=== PATIENT | female | born 1980 | race Two or more races ===

== ENCOUNTER 2018-02-11 14:22 | Emergency (ER) | payer OTHER ==
[2018-02-11] MEDS ORDERED: Sodium Chloride 0.9% 1,000 ML IV ONE (14:27)
[2018-02-11] MEDS ORDERED: Albuterol/Ipratropium 3.0-0.5 MG/3 ML Neb Soln NEB ONE (14:27)
[2018-02-11] MEDS ORDERED: methylPREDNISolone Sodium Succinate 125 MG/2 ML SDV IVPUSH ONE (14:27)
--- NOTE | 2018-02-11 14:30 | EDM.PDOC ---
ED HPI GENERAL MEDICAL PROBLEM - General Chief Complaint: Respiratory Problem Stated Complaint: SOB Time Seen by Provider: 02/11/18 14:23 - History of Present Illness INITIAL COMMENTS - FREE TEXT/NARRATIVE: HISTORY AND PHYSICAL: History of present illness: Patient's a 37-year-old female history of asthma presents with concern of shortness of breath she states she's been using her albuterol inhaler more frequently without improvement she also has a complaint of chest pain is vaguely described without associated palpitations diaphoresis or other concern she denies history of steroids prior. Review of systems: As per history of present illness and below otherwise all systems reviewed and negative. Past medical history: As per history of present illness and as reviewed below otherwise noncontributory. Surgical history: As per history of present illness and as reviewed below otherwise noncontributory. Social history: No reported history of drug or alcohol abuse. Family history: As per history of present illness and as reviewed below otherwise noncontributory. Physical exam: HEENT: Atraumatic, normocephalic, pupils reactive, negative for conjunctival pallor or scleral icterus, mucous membranes moist, throat clear, neck supple, nontender, trachea midline. Lungs: Diminished breath sounds equal bilaterally, chest nontender. Heart: S1S2, regular, negative for clicks, rubs, or JVD. Abdomen: Soft, nondistended, nontender. Negative for masses or hepatosplenomegaly. Negative for costovertebral tenderness. Pelvis: Stable nontender. Genitourinary: Deferred. Rectal: Deferred. Extremities: Atraumatic, negative for cords or calf pain. Neurovascular unremarkable. Neuro: Awake, alert, oriented. Cranial nerves II through XII unremarkable. Cerebellum unremarkable. Motor and sensory unremarkable throughout. Exam nonfocal. Diagnostics: CBC CMP troponin chest x-ray EKG Therapeutics: Saline 1 L bolus Solu-Medrol and 25 mg IV albuterol ipratropium nebulizer Impression: #1 dyspnea #2 history of asthma #3 atypical chest pain Definitive disposition and diagnosis as appropriate pending reevaluation and review of above. - Related Data Allergies Allergy/AdvReac Type Severity Reaction Status Date / Time nalbuphine [From Nubain] Allergy Difficulty Verified 02/11/18 14:28 Breathing Home Meds: Home Meds Albuterol Sulfate [Proventil Hfa] 2 puff INH ASDIRECTED PRN 02/11/18 [History] Cetirizine [ZyrTEC] 10 mg PO DAILY 02/11/18 [History] Montelukast [Singulair] 10 mg PO DAILY 02/11/18 [History] ED ROS GENERAL - Review of Systems Review Of Systems: ROS reveals no pertinent complaints other than HPI. ED EXAM, GENERAL - Physical Exam Exam: See Below (dictation) Course - Vital Signs Last Recorded V/S: Last Vital Signs Temp 36.3 C 02/11/18 14:29 Pulse 70 02/11/18 15:06 Resp 20 02/11/18 15:06 BP 113/64 02/11/18 14:29 Pulse Ox 100 02/11/18 15:06 - Orders/Labs/Meds Orders: Active Orders 24 hr Category Date Time Status EKG Documentation Completion [RC] STAT Care 02/11/18 14:27 Active RT Aerosol Therapy [RC] ASDIRECTED Care 02/11/18 14:28 Active Chest 1V Frontal [CR] Stat Exams 02/11/18 14:27 Taken COMPREHENSIVE METABOLIC PN,CMP [CHEM] Stat Lab 02/11/18 14:50 Received TROPONIN I [CHEM] Stat Lab 02/11/18 14:50 Received Labs: Laboratory Tests 02/11/18 Range/Units 14:50 WBC 5.55 (4.0-11.0) K/uL RBC 4.71 (4.30-5.90) M/uL Hgb 14.4 (12.0-16.0) g/dL Hct 42.3 (36.0-46.0) % MCV 89.8 (80.0-98.0) fL MCH 30.6 (27.0-32.0) pg MCHC 34.0 (31.0-37.0) g/dL RDW Std Deviation 42.6 (28.0-62.0) fl RDW Coeff of Antonia 13 (11.0-15.0) % Plt Count 272 (150-400) K/uL MPV 9.90 (7.40-12.00) fL Neut % (Auto) 38.9 L (48.0-80.0) % Lymph % (Auto) 42.2 H (16.0-40.0) % [place] % (Auto) 8.3 (0.0-15.0) % Eos % (Auto) 8.6 H (0.0-7.0) % Baso % (Auto) 2.0 H (0.0-1.5) % Neut # (Auto) 2.2 (1.4-5.7) K/uL Lymph # (Auto) 2.3 (0.6-2.4) K/uL [place] # (Auto) 0.5 (0.0-0.8) K/uL Eos # (Auto) 0.5 (0.0-0.7) K/uL Baso # (Auto) 0.1 (0.0-0.1) K/uL Nucleated RBC % 0.0 /100WBC Nucleated RBCs # 0 K/uL Meds: Medications Discontinued Medications Generic Name Dose Route Start Last Admin Trade Name Freq PRN Reason Stop Dose Admin Albuterol/Ipratropium 3 ml 02/11/18 14:27 02/11/18 14:38 Duoneb 3.0-0.5 Mg/3 Ml NEB 02/11/18 14:28 3 ml ONETIME ONE Administration Sodium Chloride 1,000 mls @ 999 mls/hr 02/11/18 14:27 02/11/18 14:59 Normal Saline IV 02/11/18 15:27 999 mls/hr STAT ONE Administration Lorazepam 1 mg 02/11/18 14:44 02/11/18 14:59 Ativan IVPUSH 02/11/18 14:45 1 mg ONETIME ONE Administration Methylprednisolone Sodium Succinate 125 mg 02/11/18 14:27 02/11/18 14:59 Solu-Medrol IVPUSH 02/11/18 14:28 125 mg ONETIME ONE Administration Departure - Departure Time of Disposition: 15:29 Disposition: Home, Self-Care 01 Condition: Good Clinical Impression: Acute asthma - Discharge Information Forms: ED Department Discharge Additional Instructions: The following information is given to patients seen in the emergency department who are being discharged to home. This information is to outline your options for follow-up care. We provide all patients seen in our emergency department with a follow-up referral. The need for follow-up, as well as the timing and circumstances, are variable depending upon the specifics of your emergency department visit. If you don't have a primary care physician on staff, we will provide you with a referral. We always advise you to contact your personal physician following an emergency department visit to inform them of the circumstance of the visit and for follow-up with them and/or the need for any referrals to a consulting specialist. The emergency department will also refer you to a specialist when appropriate. This referral assures that you have the opportunity for followup care with a specialist. All of these measure are taken in an effort to provide you with optimal care, which includes your followup. Under all circumstances we always encourage you to contact your private physician who remains a resource for coordinating your care. When calling for followup care, please make the office aware that this follow-up is from your recent emergency room visit. If for any reason you are refused follow-up, please contact the [facility] emergency department at and asked to speak to the emergency department charge nurse. Medrol Dosepak as prescribed continue current medications follow-up primary medical doctor as needed as discussed and return as needed as discussed - My Orders Last 24 Hours: My Active Orders 02/11/18 14:27 EKG Documentation Completion [RC] STAT Chest 1V Frontal [CR] Stat 02/11/18 14:28 RT Aerosol Therapy [RC] ASDIRECTED 02/11/18 14:50 COMPREHENSIVE METABOLIC PN,CMP [CHEM] Stat TROPONIN I [CHEM] Stat - Assessment/Plan Last 24 Hours: My Active Orders 02/11/18 14:27 EKG Documentation Completion [RC] STAT Chest 1V Frontal [CR] Stat 02/11/18 14:28 RT Aerosol Therapy [RC] ASDIRECTED 02/11/18 14:50 COMPREHENSIVE METABOLIC PN,CMP [CHEM] Stat TROPONIN I [CHEM] Stat
[2018-02-11] MEDS ORDERED: LORazepam 2 MG/ML SDV IVPUSH ONE (14:44)
[2018-02-11 15:35] LABS: CHLORIDE,CL 105 mmol/L (98-107); SODIUM,NA 140 mmol/L (136-145)
--- NOTE | 2018-02-13 19:11 | CR ---
EXAM DATE: 02/11/18 PATIENT'S AGE: 37 Patient: CHUCKIE PELAYO Facility: [place], [place] Site . Site : [id number] Study: XRay Chest [id number] 3:15:29 PM Ordering Physician: Doctor Farris Final Report: INDICATION: Chest pain. COMPARISON: None. TECHNIQUE: Portable AP chest. FINDINGS: Normal size cardiac silhouette. Clear lung clark without evidence of acute pneumonic infiltrates or CHF. No pneumothorax or pleural effusion. IMPRESSION: Negative portable AP chest. Dictated by Claudia Hardin MD @ Feb 11 2018 3:17PM (Electronic Signature) Report Signed by Proxy. ELKIN
== END 2018-02-11 16:38 | disposition home or self-care (01) ==
LOC: MW.ED 14:22
DX: J45.901 Unspecified asthma with (acute) exacerbation (principal); R07.89 Other chest pain; Z88.8 Allergy status to other drugs, medicaments and biological substances; Z79.899 Other long term (current) drug therapy
CPT/HCPCS: 36415; 71045; 80053; 84484; 85025; 93005; 94640; 96361; 96374; 96375; 99285; J2060; J2930; J7040